=== PATIENT | male | born 1955 | race Caucasian/White ===

== ENCOUNTER 2016-11-10 15:55 | Emergency (ER) | payer BC, OTHER ==
[2016-11-10 16:08] VITALS: BP 143/88; PULSE 106; TEMP 98.1; BMI 32.3
--- NOTE | 2016-11-10 16:17 | PDOC ---
History of Present Illness - General History Source: Patient Exam Limitations: No Limitations - History of Present Illness Initial Comments: 11/10/16 16:29 Chief Complaint: Umbilical ecchymosis History of present illness: The patient is a 61 year old male, who presents to the emergency department with ecchymosis on his umbilical region after an injury last week. He notes that he was shoveling snow last week when he hit concrete, which pushed the handle of the shovel into this abdomen. He reports that he initially had pain at the time but he denies any kind of pain at the moment. He states that he does heavy lifting at work and has not had any complications lifting anything since his injury. Past medical history: Hypothyroidism Allergies: None Past surgical history: None reported Social history: Social alcohol use. No drug or tobacco use <Robert Calderon - Last Filed: 11/10/16 16:29> <Jaron Armsrtong - Last Filed: 11/10/16 17:08> - General Chief Complaint: Injury Stated Complaint: ABDOMINAL PAIN, BRUISE Time Seen by Provider: 11/10/16 16:16 Past History <Robert Calderon - Last Filed: 11/10/16 16:29> - Past Medical History Thyroid Disease: Yes (HYPOTHYROID) - Psycho/Social/Smoking Cessation Hx Anxiety: No Suicidal Ideation: No Smoking History: Never smoked Hx Alcohol Use: Yes (occasional) <Jaron Armstrong - Last Filed: 11/10/16 17:08> - Past Medical History Allergies/Adverse Reactions: Allergies Allergy/AdvReac Type Severity Reaction Status Date / Time No Known Allergies Allergy Verified 11/10/16 15:57 Home Medications: Ambulatory Orders Levothyroxine [Synthroid -] 25 mcg PO DAILY 11/10/16 Review of Systems - Review of Systems Able to Perform ROS?: Yes Comments:: 11/10/16 16:29 CONSTITUTIONAL: Absent: fever, no chills, no fatigue EYES: Absent: visual changes ENT: Absent: ear pain, no sore throat CARDIOVASCULAR: Absent: chest pain, no palpitations RESPIRATORY: Absent: cough, no SOB GI: Absent: abdominal pain, no nausea, no vomiting, no constipation, no diarrhea GENITOURINARY: Absent: dysuria, no frequency, no hematuria MUSKULOSKELETAL: Absent: back pain, no arthralgia, no myalgia SKIN: Present: Ecchymosis over the umbilical region Absent: rash NEURO: Absent: headache <Robert Calderon - Last Filed: 11/10/16 16:29> *Physical Exam - Vital Signs Last Vital Signs Temp Pulse Resp BP Pulse Ox 98.1 F 106 H 18 143/88 95 11/10/16 15:55 11/10/16 15:55 11/10/16 15:55 11/10/16 15:55 11/10/16 15:55 - Physical Exam Comments: 11/10/16 16:30 GENERAL: Well-appearing, well-nourished. No apparent distress. HEENT: Normocephalic, atraumatic. PERRL, EOM intact. CARDIOVASCULAR: Normal S1, S2. Regular rate and rhythm. PULMONARY: Clear to auscultation bilaterally. ABDOMEN: Soft, non-distended, non-tender. EXTREMITIES: Normal ROM in all four extremities. No gross deformities. SKIN: +2 by 2 cm hematoma superior to umbilicus with ecchymosis. Nontender to palpation. Warm, dry. No rash NEUROLOGICAL: No focal neurological deficits. <Robert Calderon - Last Filed: 11/10/16 16:29> - Vital Signs Last Vital Signs Temp Pulse Resp BP Pulse Ox 98.1 F 106 H 18 143/88 95 11/10/16 15:55 11/10/16 15:55 11/10/16 15:55 11/10/16 15:55 11/10/16 15:55 <Jaron Armstrong - Last Filed: 11/10/16 17:08> Medical Decision Making - Medical Decision Making 11/10/16 17:07 Physical exam essentially negative except for periumbilical ecchymosis and superficial 4 cm hematoma palpated just superior to the umbilicus. Specifically , abdomen was nondistended, bowel sounds were normal, there was no point tenderness and no mass or defect in the abdominal musculature was palpated. Since the injury as a-week-old, and the patient has no pain or tenderness, this is likely a resolving hematoma confined to the abdominal muscles. He is fully ambulatory and in no discomfort upon discharge to follow-up as needed. Symptomatic treatment recommended. <Jaron Armstrong - Last Filed: 11/10/16 17:08> *DC/Admit/Observation/Transfer - Attestations Scribe Attestion: 11/10/16 16:32 Documentation prepared by Robert Calderon, acting as behavioral medical director for Jaron Hills MD <Robert Calderon - Last Filed: 11/10/16 16:29> - Discharge Dispostion Admit: No <Jaron Armstrong - Last Filed: 11/10/16 17:08> Diagnosis at time of Disposition: Contusion of abdominal wall Qualifiers: Encounter type: initial encounter Qualified Code(s): S30.1XXA - Contusion of abdominal wall, initial encounter - Discharge Dispostion Disposition: HOME Condition at time of disposition: Stable - Referrals Referrals: Orlando Hobbs MD [Primary Care Provider] - 1 week - Patient Instructions Printed Discharge Instructions: DI for Contusion Additional Instructions: Rest. Avoid strenuous activity one to 2 weeks. Warm compresses. Recheck if further symptoms develop, especially if there is pain, nausea, vomiting, lightheadedness. - Post Discharge Activity Work/School Note: Back to Work
== END 2016-11-10 16:35 | disposition home or self-care (01) ==
LOC: FER 15:55
DX: S30.1XXA Contusion of abdominal wall, initial encounter (principal); W20.8XXA Other cause of strike by thrown, projected or falling object, initial encounter; Y93.H1 Activity, digging, shoveling and raking; Y92.9 Unspecified place or not applicable; E03.9 Hypothyroidism, unspecified
CPT/HCPCS: 99283-25

== ENCOUNTER 2023-09-12 04:56 | Day surgery (SDC) | payer BC ==
[2023-09-08 12:36] VITALS: BMI 40.8
[2023-09-12 11:06] VITALS: TEMP 97.5
[2023-09-12 11:45] VITALS: RESP 18
[2023-09-12 11:47] VITALS: BP 129/74; PULSE 75
== END 2023-09-12 11:47 | disposition home or self-care (01) ==
LOC: JASU-ENDO 04:56
PROVIDERS: ATTEND Internal Medicine Gastroenterology
PROC: 0DBN8ZX Excision of Sigmoid Colon, Via Natural or Artificial Opening Endoscopic, Diagnostic (ICD-10-PCS; 2023-09-12)
PROC: 0DBM8ZX Excision of Descending Colon, Via Natural or Artificial Opening Endoscopic, Diagnostic (ICD-10-PCS; 2023-09-12)
PROC: 3E0H8KZ Introduction of Other Diagnostic Substance into Lower GI, Via Natural or Artificial Opening Endoscopic (ICD-10-PCS; 2023-09-12)
PROC: 0DB98ZX Excision of Duodenum, Via Natural or Artificial Opening Endoscopic, Diagnostic (ICD-10-PCS; 2023-09-12)
PROC: 0DB78ZX Excision of Stomach, Pylorus, Via Natural or Artificial Opening Endoscopic, Diagnostic (ICD-10-PCS; 2023-09-12)
PROC: 0DB68ZX Excision of Stomach, Via Natural or Artificial Opening Endoscopic, Diagnostic (ICD-10-PCS; 2023-09-12)
PROC: 0DBH8ZX Excision of Cecum, Via Natural or Artificial Opening Endoscopic, Diagnostic (ICD-10-PCS; principal; 2023-09-12 10:00)
DX: Z12.11 Encounter for screening for malignant neoplasm of colon (principal); D12.0 Benign neoplasm of cecum; D12.4 Benign neoplasm of descending colon; D12.5 Benign neoplasm of sigmoid colon; K64.8 Other hemorrhoids; Z86.010 Personal history of colon polyps; K29.00 Acute gastritis without bleeding; K31.7 Polyp of stomach and duodenum
CPT/HCPCS: 88305-TC; 88342-TC